=== PATIENT | male | born 1965 | race Caucasian/White ===

== ENCOUNTER 2019-11-18 14:53 | Outpatient (CLI) | payer OTHER | END 2019-11-18 15:22 | disposition home or self-care (01) | LOC: TOM 14:53 | DX: Z12.31 Encounter for screening mammogram for malignant neoplasm of breast (principal); N60.11 Diffuse cystic mastopathy of right breast; N60.12 Diffuse cystic mastopathy of left breast ==

== ENCOUNTER 2021-07-16 12:43 | Outpatient (CLI) | payer OTHER | END 2021-07-16 13:00 | disposition home or self-care (01) | LOC: MRI 12:43 | PROVIDERS: ATTEND Specialist | DX: R07.89 Other chest pain (principal); E03.8 Other specified hypothyroidism; Z12.5 Encounter for screening for malignant neoplasm of prostate; Z12.11 Encounter for screening for malignant neoplasm of colon; Z13.1 Encounter for screening for diabetes mellitus; R05 Cough | CPT/HCPCS: 73718 ==

== ENCOUNTER 2021-07-22 09:26 | Outpatient (CLI) | payer OTHER | END 2021-07-22 09:37 | disposition home or self-care (01) | LOC: NUCLEAR 09:26 | PROVIDERS: ATTEND Specialist | DX: I73.9 Peripheral vascular disease, unspecified (principal); M79.662 Pain in left lower leg; M79.661 Pain in right lower leg ==